=== PATIENT | male | born 1965 | race Caucasian/White ===

== ENCOUNTER 2016-10-15 20:39 | Emergency (ER) | payer OTHER | END 2016-10-15 21:45 | disposition home or self-care (01) | LOC: ER 20:39 | DX: S61.412A Laceration without foreign body of left hand, initial encounter (principal); J44.9 Chronic obstructive pulmonary disease, unspecified; F32.9 Major depressive disorder, single episode, unspecified; F17.210 Nicotine dependence, cigarettes, uncomplicated; W29.8XXA Contact with other powered hand tools and household machinery, initial encounter ==

== ENCOUNTER 2016-10-26 20:44 | Emergency (ER) | payer OTHER | END 2016-10-26 20:51 | disposition left against medical advice (07) | LOC: ER 20:44 | DX: Z53.21 Procedure and treatment not carried out due to patient leaving prior to being seen by health care provider (principal) ==

== ENCOUNTER 2016-11-12 03:05 | Emergency (ER) | payer OTHER | END 2016-11-12 06:26 | disposition short-term general hospital (02) | LOC: ER 03:05 | DX: F11.10 Opioid abuse, uncomplicated (principal); F15.10 Other stimulant abuse, uncomplicated; D64.9 Anemia, unspecified; E87.1 Hypo-osmolality and hyponatremia; J44.9 Chronic obstructive pulmonary disease, unspecified; F32.9 Major depressive disorder, single episode, unspecified; F17.210 Nicotine dependence, cigarettes, uncomplicated; Z88.1 Allergy status to other antibiotic agents | CPT/HCPCS: 36415; 96360 ==